=== PATIENT | female | born 1950 | race Caucasian/White ===

== ENCOUNTER 2019-01-12 13:38 | Outpatient (REF) | payer MEDICARE, OTHER, SELFPAY ==
[2019-01-12 21:50] LABS: Cholesterol 231 mg/dL (50-200); HDL Cholesterol 86 mg/dL (40-60); LDL CHOLESTEROL 124 mg/dL (<100); Potassium 4.3 mmol/L (3.5-5.1); Triglyceride 67 mg/dL (30-150)
== END 2019-01-12 13:58 ==
LOC: NCHCN 13:38
PROVIDERS: Visit Provider Registered Nurse
DX: E87.6 Hypokalemia (principal); I10 Essential (primary) hypertension; Z13.6 Encounter for screening for cardiovascular disorders; Z82.49 Family history of ischemic heart disease and other diseases of the circulatory system
CPT/HCPCS: 80061; 83721; 84132

== ENCOUNTER 2019-01-12 18:27 | Outpatient (REF) | payer MEDICARE, OTHER, SELFPAY ==
--- NOTE | 2019-01-12 11:30 | PAPFT_PTH ---
PATIENT: Kari Wisdom LOC: [facility], [facility] U#:[id number] AGE/SX: 68/F ROOM: RE01/12/[address]: Rhoda Orellana : 1950 BED: DIS: 01/12/2019 SPEC #: [id number] RECD: 01/13/19 13:22 STATUS: GAUDENCIO RETati #: [id number] ROLANDO: 01/12/19 11:[address]: Rhoda Orellana DEPT[facility] Cytology RECD BY: Mona Cano ENTERED: 01/13/19 13:23 SP TYPE: PAPFT OTHR DR: Harrison Mcdonald Tissues: 1 - CX/ENDOCX FOR PAP SMEARS Procedures: PAP THIN PREP/[facility] Screening HPV DNA PROBE Comments: [id number]
== END 2019-01-12 18:47 ==
LOC: NCHCN 18:27
PROVIDERS: Visit Provider Registered Nurse
DX: Z12.4 Encounter for screening for malignant neoplasm of cervix (principal); Z11.51 Encounter for screening for human papillomavirus (HPV)
CPT/HCPCS: 88142; 87624

== ENCOUNTER 2019-08-10 12:19 | Outpatient (REF) | payer MEDICARE, OTHER, SELFPAY ==
[2019-08-10 21:39] LABS: Anion Gap 7.6 mmol/L (3-11); BUN 11 mg/dL (7-18); CO2 28.4 mmol/L (21.0-32.0); CREATININE 0.83 mg/dL (0.55-1.02); Calcium 8.7 mg/dL (8.5-10.1); Chloride 107 mmol/L (98-107); Glucose 88 mg/dL (70-100); Potassium 4.1 mmol/L (3.5-5.1); Sodium 143 mmol/L (136-145)
== END 2019-08-10 12:39 ==
LOC: NCHCN 12:19
PROVIDERS: Visit Provider Registered Nurse
DX: E87.6 Hypokalemia (principal)
CPT/HCPCS: 80048

== ENCOUNTER 2019-08-31 09:16 | Outpatient (REF) | payer MEDICARE, OTHER, SELFPAY ==
[2019-08-31 22:54] LABS: Anion Gap 6.7 mmol/L (3-11); BUN 12 mg/dL (7-18); CO2 29.3 mmol/L (21.0-32.0); CREATININE 0.78 mg/dL (0.55-1.02); Calcium 8.5 mg/dL (8.5-10.1); Chloride 108 mmol/L (98-107); Glucose 92 mg/dL (70-100); Sodium 144 mmol/L (136-145)
== END 2019-08-31 09:36 ==
LOC: NCHCN 09:16
PROVIDERS: Visit Provider Registered Nurse
DX: I10 Essential (primary) hypertension (principal); E87.6 Hypokalemia
CPT/HCPCS: 80048

== ENCOUNTER 2021-03-09 08:54 | Outpatient (REF) | payer MEDICARE, OTHER, SELFPAY ==
[2021-03-09 13:08] LABS: Anion Gap 7.4 mmol/L (3-11); BUN 14 mg/dL (7-18); CO2 28.6 mmol/L (21.0-32.0); CREATININE 0.9 mg/dL (0.55-1.02); Calcium 9.7 mg/dL (8.5-10.1); Chloride 106 mmol/L (98-107); Glucose 88 mg/dL (74-106); Magnesium 2.1 mg/dL (1.8-2.4); Potassium 4.2 mmol/L (3.5-5.1); Sodium 142 mmol/L (136-145)
== END 2021-03-09 08:55 | disposition home or self-care (01) ==
LOC: NCHCN 08:54
PROVIDERS: Visit Provider Registered Nurse
DX: I10 Essential (primary) hypertension (principal); I45.81 Long QT syndrome
CPT/HCPCS: 80048; 83735

== ENCOUNTER 2021-04-14 13:56 | Outpatient (REF) | payer MEDICARE, OTHER, SELFPAY ==
[2021-04-14 20:52] LABS: Anion Gap 10.3 mmol/L (3-11); BUN 17 mg/dL (7-18); CO2 25.7 mmol/L (21.0-32.0); CREATININE 0.9 mg/dL (0.55-1.02); Calcium 9.2 mg/dL (8.5-10.1); Chloride 107 mmol/L (98-107); Glucose 99 mg/dL (74-106); Potassium 4.1 mmol/L (3.5-5.1); Sodium 143 mmol/L (136-145)
== END 2021-04-14 13:57 | disposition home or self-care (01) ==
LOC: NCHCN 13:56
PROVIDERS: Visit Provider Registered Nurse
DX: I10 Essential (primary) hypertension (principal)
CPT/HCPCS: 80048

== ENCOUNTER 2021-08-08 13:59 | Outpatient (REF) | payer MEDICARE, OTHER, SELFPAY ==
[2021-08-08 16:39] LABS: Anion Gap 5.8 mmol/L (3-11); BUN 19 mg/dL (7-18); CO2 30.2 mmol/L (21.0-32.0); Calcium 9.2 mg/dL (8.5-10.1); Chloride 107 mmol/L (98-107); Estimated GFR 54.97 (mL/min/1.73m2); Glucose 84 mg/dL (74-106); Potassium 3.9 mmol/L (3.5-5.1); Sodium 143 mmol/L (136-145)
== END 2021-08-08 14:00 | disposition home or self-care (01) ==
LOC: NCHCN 13:59
PROVIDERS: Referring Provider Registered Nurse; Visit Provider Registered Nurse
DX: I10 Essential (primary) hypertension (principal); E87.6 Hypokalemia
CPT/HCPCS: 80048

== ENCOUNTER 2021-09-29 14:15 | Outpatient (REF) | payer MEDICARE, OTHER, SELFPAY ==
[2021-09-29 15:14] LABS: Anion Gap 6.8 mmol/L (3-11); BUN 23 mg/dL (7-18); CO2 31.2 mmol/L (21.0-32.0); CREATININE 0.9 mg/dL (0.55-1.02); Calcium 9.2 mg/dL (8.5-10.1); Chloride 105 mmol/L (98-107); Glucose 84 mg/dL (74-106); Sodium 143 mmol/L (136-145)
== END 2021-09-29 14:16 | disposition home or self-care (01) ==
LOC: NCHCN 14:15
PROVIDERS: Visit Provider Registered Nurse
DX: I10 Essential (primary) hypertension (principal); I45.81 Long QT syndrome
CPT/HCPCS: 80048

== ENCOUNTER 2022-09-26 16:01 | Outpatient (REF) | payer MEDICARE, OTHER, SELFPAY ==
[2022-09-26 16:30] LABS: Anion Gap 6.9 mmol/L (3-11); BUN 17 mg/dL (7-18); CO2 29.1 mmol/L (21.0-32.0); Calcium 9.3 mg/dL (8.5-10.1); Calculated LDL 138 mg/dL (<100); Chloride 104 mmol/L (98-107); Cholesterol 230 mg/dL (<200); Estimated GFR 60.61 (mL/min/1.73m2); Glucose 82 mg/dL (74-106); HDL Cholesterol 80 mg/dL (40-60); Magnesium 1.8 mg/dL (1.8-2.4); Potassium 3.8 mmol/L (3.5-5.1); Sodium 140 mmol/L (136-145); Triglyceride 63 mg/dL (<150); Vitamin B12 504 pg/mL (193-986)
== END 2022-09-26 16:02 | disposition home or self-care (01) ==
LOC: NCHCN 16:01
PROVIDERS: Visit Provider Registered Nurse
DX: K21.9 Gastro-esophageal reflux disease without esophagitis (principal); Z13.6 Encounter for screening for cardiovascular disorders; R79.89 Other specified abnormal findings of blood chemistry
CPT/HCPCS: 80048; 80061; 82607; 83735

== ENCOUNTER 2023-03-29 22:05 | Outpatient (REF) | payer MEDICARE, OTHER, SELFPAY ==
[2023-03-29 22:13] LABS: HCT 46.3 % (36.0-46.0); MCH 30.6 pg (27.0-33.0); MCHC 32.4 % (32.0-36.0); MCV 95 fL (80-95); MPV 10.9 fL (8.0-11.0); Platelet Count 255 10^3/uL (130-400); RDW 13.2 % (11.7-14.6); RDW-SD 45.6 fL; WBC 7.28 10^3/uL (4.4-10.8)
[2023-03-29 22:35] LABS: Anion Gap 7.7 mmol/L (3-11); BUN 15 mg/dL (7-18); CO2 30.3 mmol/L (21.0-32.0); Calcium 9.7 mg/dL (8.5-10.1); Chloride 105 mmol/L (98-107); Estimated GFR 60.23 (mL/min/1.73m2); Glucose 68 mg/dL (74-106); Potassium 3.4 mmol/L (3.5-5.1); Sodium 143 mmol/L (136-145); TSH (W/Ref FT4) 2.18 uIU/mL (0.36-3.74)
== END 2023-03-29 22:06 | disposition home or self-care (01) ==
LOC: NCHCN 22:05
PROVIDERS: Visit Provider Registered Nurse
DX: I10 Essential (primary) hypertension (principal); R06.09 Other forms of dyspnea; Z13.6 Encounter for screening for cardiovascular disorders
CPT/HCPCS: 80048; 85027; 84443

== ENCOUNTER 2023-04-18 12:41 | Outpatient (REF) | payer MEDICARE, SELFPAY ==
[2023-04-18 15:29] LABS: Anion Gap 9.5 mmol/L (3-11); BUN 16 mg/dL (7-18); CO2 27.5 mmol/L (21.0-32.0); Calcium 9.2 mg/dL (8.5-10.1); Chloride 108 mmol/L (98-107); Estimated GFR 60.23 (mL/min/1.73m2); Glucose 83 mg/dL (74-106); Potassium 3.8 mmol/L (3.5-5.1); Sodium 145 mmol/L (136-145)
== END 2023-04-18 12:42 | disposition home or self-care (01) ==
LOC: NCHCN 12:41
PROVIDERS: Visit Provider Registered Nurse
DX: E87.6 Hypokalemia (principal); I10 Essential (primary) hypertension
CPT/HCPCS: 80048

== ENCOUNTER 2024-02-28 11:17 | Outpatient (REF) | payer MEDICARE, SELFPAY ==
[2024-02-28 15:41] LABS: Anion Gap 10.7 mmol/L (3-11); BUN 18 mg/dL (7-18); CO2 27.3 mmol/L (21.0-32.0); CREATININE 0.9 mg/dL (0.55-1.02); Calcium 9.5 mg/dL (8.5-10.1); Calculated LDL 89 mg/dL (<100); Chloride 104 mmol/L (98-107); Cholesterol 160 mg/dL (<200); Estimated GFR 67.92 (mL/min/1.73m2); Glucose 103 mg/dL (74-106); HDL Cholesterol 53 mg/dL (40-60); Sodium 142 mmol/L (136-145); Triglyceride 91 mg/dL (<150)
== END 2024-02-28 11:18 | disposition home or self-care (01) ==
LOC: NCHCN 11:17
PROVIDERS: Visit Provider Family Medicine
DX: E78.5 Hyperlipidemia, unspecified (principal); I10 Essential (primary) hypertension
CPT/HCPCS: 80048; 80061

== ENCOUNTER 2025-02-12 13:27 | Outpatient (REF) | payer MEDICARE, SELFPAY ==
[2025-02-12 22:00] LABS: Anion Gap 3.1 mmol/L (3-11); BUN 16 mg/dL (7-18); CO2 34.9 mmol/L (21.0-32.0); Calcium 9.6 mg/dL (8.5-10.1); Calculated LDL 64 mg/dL (<100); Chloride 106 mmol/L (98-107); Cholesterol 168 mg/dL (<200); Estimated GFR 59.49 (mL/min/1.73m2); Glucose 91 mg/dL (74-106); HDL Cholesterol 79 mg/dL (>or=50); Potassium 3.7 mmol/L (3.5-5.1); Sodium 144 mmol/L (136-145); Triglyceride 127 mg/dL (<150)
== END 2025-02-12 13:28 | disposition home or self-care (01) ==
LOC: NCHCN 13:27
PROVIDERS: PCP Family Medicine; Visit Provider Family Medicine
DX: I10 Essential (primary) hypertension (principal); E78.5 Hyperlipidemia, unspecified
CPT/HCPCS: 80048; 80061

== ENCOUNTER 2025-06-28 12:56 | Outpatient (REF) | payer MEDICARE, SELFPAY ==
[2025-06-28 15:12] LABS: HCT 38.2 % (36.0-46.0); HGB 12.8 g/dL (11.2-15.7); MCH 30.5 pg (27.0-33.0); MCHC 33.5 % (32.0-36.0); MCV 91 fL (80-95); MPV 10.9 fL (8.0-11.0); Platelet Count 233 10^3/uL (130-400); RBC 4.19 10^6/uL (3.93-5.22); RDW 13.2 % (11.7-14.6); RDW-SD 43.7 fL; WBC 6.06 10^3/uL (4.4-10.8)
== END 2025-06-28 12:57 | disposition home or self-care (01) ==
LOC: NCHCN 12:56
PROVIDERS: PCP Family Medicine; Visit Provider Family Medicine
DX: Z01.812 Encounter for preprocedural laboratory examination (principal)
CPT/HCPCS: 85027